=== PATIENT | male | born 1985 | race African-American/Black ===

== ENCOUNTER 2016-03-28 21:52 | Emergency (ER) | payer OTHER ==
[2016-03-28 21:57] VITALS: TEMP 37
--- NOTE | 2016-03-28 22:27 | EMERGENCY ROOM VISIT NOTE ---
History Report prepared by Mary: Jose Jung Under the Supervision of: Dr. Ashok Matthews M.D. First contact with patient: 22:03 Chief Complaint: ABNORMAL LABS Stated Complaint: ABNORMAL LABS History of Present Illness The patient is a 30 year old male who presents to the Emergency Room with complaints of a persistent abnormal lab that was found earlier today. The patient is an inmate. He was sent here due to his hemoglobin being 8.6. He also has cuts on his wrists due to biting his own wrists. The patient notes that this was a suicide attempt, and he bled quite a bit. He has been biting his wrists since February, and says he is actively suicidal currently. The patient denies any other major medical problems. He was given 5 of IM Ativan prior to transfer to the ER. He was just transferred to [facility] in the beginning of this month and has been in their mental health unit. Source of History: patient Onset: Earlier today Position: other (global - abnormal labs) Symptom Intensity: hemoglobin of 8.6 Timing: other (persistent) Note: Associated symptoms: Suicidal, bites on wrists. No other associated symptoms noted. Review of Systems See HPI for pertinent positives & negatives. A total of 10 systems reviewed and were otherwise negative. Past Medical & Surgical Medical Problems: (1) Suicidal behavior with attempted self-injury Family History No pertinent family history Social History Smoking Status: Former Smoker Marital Status: single Housing Status: other (inmate) Occupation Status: other (inmate) Current/Historical Medications Scheduled Bupropion (Wellbutrin), 75 MG PO DAILY Clonazepam (Klonopin), 2 MG PO QID Hydroxyzine Pamoate (Vistaril), 50 MG PO HS Methylphenidate (Ritalin), 5 MG PO QAM Mirtazapine (Remeron), 45 MG PO HS Oxcarbazepine (Trileptal), 150 MG PO BID Allergies Coded Allergies: No Known Allergies (Unverified , 03/28/16) Physical Exam Vital Signs Date Time Temp Pulse Resp B/P Pulse Ox O2 Delivery O2 Flow Rate FiO2 03/28/16 23:03 83 18 138/79 99 03/28/16 21:57 37.0 83 18 138/79 99 Room Air Physical Exam GENERAL: Patient is mildly somnolent and in no distress (patient awoke and was very much with it when I offered to do rectal exam) HEENT: No acute trauma, normocephalic atraumatic, mucous membranes moist, no nasal congestion, no scleral icterus. NECK: No stridor, no adenopathy, no meningismus, trachea is midline. LUNGS: No dyspnea. Clear to auscultation and equal bilaterally. No wheeze, no rhonchi. HEART: Regular rate and rhythm. No murmurs, rubs, gallops appreciated. ABDOMEN: Soft, nontender, bowel sounds positive, no masses appreciated, no peritonitis. BACK: No midline tenderness, no CVA tenderness EXTREMITIES: Multiple bite hendrix of bilateral wrists of various ages, most with granulation tissue. Has no evidence of arterial nor ligamentous injury. No current evidence of infection and no active bleeding. NEUROLOGIC: Alert and oriented, no acute motor or sensory deficits, no focal weakness, cranial nerves grossly intact. SKIN: No rash, no jaundice, no diaphoresis. Medical Decision & Procedures ER Provider Diagnostic Interpretation: X ray results are stated below per my interpretation and the radiologist's interpretation. KUB CLINICAL HISTORY: History ingesting foreign objects COMPARISON STUDY: None. FINDINGS: A 2.4 cm linear radiodensity projecting over the left superior pubic ramus is probably on rather than within the patient. A few pelvic calcifications likely reflect phleboliths. No radiopaque foreign bodies identified within the lower chest, abdomen or pelvis. Bowel gas pattern is normal. IMPRESSION: 1. 2.4 cm linear radiodensity which projects over the left superior pubic ramus. This is probably on rather than within the patient and may reflect a button. This could be correlated with physical exam. 2. No definite radiopaque foreign body within the lower chest, abdomen or pelvis. Electronically signed by: Tiago Luna M.D. 03/28/2016 10:54 PM Dictated Date/Time: 03/28/2016 10:51 PM Medications Administered Medications (Trade) Dose Ordered Sig/Ana Route Start Time Stop Time Status Last Admin Dose Admin Bacitracin (Bacitracin Oint) 45 appln STK-MED ONCE .ROUTE 03/28/16 22:56 03/28/16 22:58 DC 03/28/16 22:56 45 APPLN ED Course 2200: The patient was evaluated in room C8. A complete history and physical exam was performed. 4: I reevaluated the patient and he refuses a rectal exam. The patient verbally expressed understanding and agreement of the treatment plan. The patient will be discharged. Medical Decision 30 yr old male prisoner who arrives for evaluation of anemia. He has been chronically biting at his wrists over last few months with what he reports is periodic heavy bleeding. He has varying aged bite hendrix on wrists which do not exhibit any clear evidence of arterial or ligamentous injuries. None are infected. If this was single time I would consider abc but this is chronic issue and I do not feel he has any active infection thus will be monitored closely in nursing home. Seems reasonable that anemia is secondary to bleeding from chronically biting wrists, however GI bleed would usually be evaluated for by stool exam. He adamantly refuses rectal examination. He had KUB done as may have history of ingesting this which is unremarkable (button noted on pants on xray). I do not feel that he requires transfusion at this time as he is healthy , stable, and with his age and no other symptoms. He will need repeat HgB as outpatient though with iron supplement I would suspect he will improve (unknown baseline as well). Of course if he continues to bite himself and cause bleeding he will I'm sure eventually need a transfusion or cause some severe injury to himself. Wounds dressed by nursing and patient discharged back to nursing home. Impression Primary Impression: Anemia Additional Impression: Open bite of wrist Scribe Attestation The scribe's documentation has been prepared under my direction and personally reviewed by me in its entirety. I confirm that the note above accurately reflects all work, treatment, procedures, and medical decision making performed by me. Departure Information Dispostion Home / Self-Care Referrals No Doctor, Assigned (PCP) Patient Instructions My [facility] Additional Instructions Given patient's age and health status, patient does not require blood transfusion at this time, HgB > 8. If symptomatic or worsening anemia he may require a blood transfusion. KUB (flat plate xray) reveals no acute findings. It is likely patient should be on a multivitamin or iron supplement. If black/bloody stools, passing out, or other concerns return to ED. Monitor wounds for signs of infection, though given chronic bites seems that starting antibiotics at this time would not be indicated. Problem Qualifiers Primary Impression: Anemia Anemia type: unspecified type Qualified Codes: D64.9 - Anemia, unspecified Additional Impression: Open bite of wrist Encounter type: initial encounter
[2016-03-28] MEDS ORDERED: OXCA150T2 PO (22:44)
[2016-03-28] MEDS ORDERED: HYDR50CA2 PO (22:44)
[2016-03-28] MEDS ORDERED: BUPR75TA20 PO (22:44)
[2016-03-28] MEDS ORDERED: CLON2TAB3 PO (22:44)
[2016-03-28] MEDS ORDERED: MIRT45TA PO (22:44)
[2016-03-28] MEDS ORDERED: METH5TAB4 PO (22:44)
[2016-03-28] MEDS ORDERED: BACITRACIN OINT 15 GM TUBE ONE (22:56)
--- NOTE | 2016-03-28 22:56 | DIAGNOSTIC IMAGING REPORT ---
KUB CLINICAL HISTORY: History ingesting foreign objects COMPARISON STUDY: None. FINDINGS: A 2.4 cm linear radiodensity projecting over the left superior pubic ramus is probably on rather than within the patient. A few pelvic calcifications likely reflect phleboliths. No radiopaque foreign bodies identified within the lower chest, abdomen or pelvis. Bowel gas pattern is normal. IMPRESSION: 1. 2.4 cm linear radiodensity which projects over the left superior pubic ramus. This is probably on rather than within the patient and may reflect a button. This could be correlated with physical exam. 2. No definite radiopaque foreign body within the lower chest, abdomen or pelvis. Electronically signed by: Tiago Luna M.D. 03/28/2016 10:54 PM Dictated Date/Time: 03/28/2016 10:51 PM
[2016-03-28 23:03] VITALS: BP 138/79; PULSE 83; O2SAT 99
== END 2016-03-28 23:02 | disposition home or self-care (01) ==
LOC: C.EDB 21:54 → C.EDC 23:02
DX: D50.0 Iron deficiency anemia secondary to blood loss (chronic) (principal); S60.871A Other superficial bite of right wrist, initial encounter; S60.872A Other superficial bite of left wrist, initial encounter; X83.8XXA Intentional self-harm by other specified means, initial encounter; Y92.149 Unspecified place in prison as the place of occurrence of the external cause; Y99.8 Other external cause status; Y93.89 Activity, other specified; Z87.891 Personal history of nicotine dependence; Z79.899 Other long term (current) drug therapy

== ENCOUNTER → 2016-03-28 | Outpatient (CLI) | payer OTHER ==
[~2016-03-28] MED LIST: BUPR75TA20 PO; CLON2TAB3 PO; HYDR50CA2 PO; METH5TAB4 PO; MIRT45TA PO; OXCA150T2 PO
[2016-03-28 18:35] LABS: HEMATOCRIT 26.1 % (42-52); MEAN CELL VOLUME 87.3 fL (80-100); MEAN CORPUSCULAR HEMOGLOBIN 28.8 pg (25-34); MEAN PLATELET VOLUME 9.3 fL (7.4-10.4); PLATELET COUNT 341 K/uL (130-400); RED BLOOD COUNT 2.99 M/uL (4.7-6.1); WHITE BLOOD COUNT 6.69 K/uL (4.8-10.8)
[2016-03-28 19:04] LABS: ALKALINE PHOSPHATASE 59 U/L (45-117); ALT/SGPT 31 U/L (12-78); AST/SGOT 35 U/L (15-37); BLOOD UREA NITROGEN 11 mg/dl (7-18); BUN/CREATININE RATIO 9.5 (10-20); CALCIUM 9.1 mg/dl (8.5-10.1); CARBON DIOXIDE 18 mmol/L (21-32); CHLORIDE 106 mmol/L (98-107); GLUCOSE 83 mg/dl (70-99); POTASSIUM 4.5 mmol/L (3.5-5.1); SODIUM 138 mmol/L (136-145)
== END ==
LOC: C.LABSPEC 10:03
PROVIDERS: ATTEND Psychiatry & Neurology Psychiatry
DX: F60.2 Antisocial personality disorder (principal)